=== PATIENT | female | born 1985 | race Caucasian/White ===

== ENCOUNTER 2017-03-25 21:49 | Outpatient (CLI) | payer OTHER | END 2017-03-25 21:50 | disposition critical access hospital (66) | LOC: EMS 21:49 | PROVIDERS: ATTEND Surgery | DX: R56.9 Unspecified convulsions (principal) | CPT/HCPCS: A0425; A0429 ==

== ENCOUNTER 2017-03-25 22:15 | Emergency (ER) | payer OTHER ==
[2017-03-25] MEDS ORDERED: SODIUM CHLORIDE 0.9% 1,000 ML IV STA (22:33)
--- NOTE | 2017-03-25 22:35 | ED Physician Documentation ---
PD HPI SYNCOPE - Stated complaint Stated Complaint: SZ - Chief complaint Chief Complaint: Neuro - History obtained from History obtained from: Patient, EMS - History of Present Illness Witnessed: Witnessed Timing - onset: Other (less than 30 minutes [employer]) Duration: Minutes Preceding symptoms: Vision changes, Diaphoresis, Light headed, Generalized weakness Associated symptoms: Nausea / vomiting Contributing factors: Emotional upset, Just stood up Injury occurred: None Pain level now: 0 Recently seen: Not recently seen - Additional information Additional information: patient was worried that her son might have broken his foot tonight when it got caught on a chair. Patient stood up and suddenly felt dizzy, lightheaded, and had dimmed peripheral vision. She subsequently lost consciousness and spouse witnessed GTC seizure activity. Patient rapidly regained consciousness over the next few minutes, had nausea and vomiting x 1 after waking. She only c/o nausea on ED presentation Review of Systems Constitutional: reports: Reviewed and negative Eyes: reports: Decreased vision (transient, resolved) Cardiac: reports: Reviewed and negative Respiratory: reports: Reviewed and negative GI: reports: Nausea, Vomiting. denies: Abdominal Pain Musculoskeletal: denies: Neck pain, Back pain Neurologic: reports: Syncope, Seizure. denies: Generalized weakness, Focal weakness, Numbness, Headache PD PAST MEDICAL HISTORY - Past Medical History Past Medical History: Yes Respiratory: Asthma Neuro: Fainting GI: Ulcerative colitis Psych: Anxiety - Past Surgical History Past Surgical History: Yes General: Cholecystectomy - Present Medications Home Medications: Ambulatory Orders Medication Instructions Recorded Confirmed No Known Home Medications [No 03/25/17 03/25/17 Known Home Medications] - Allergies Allergies/Adverse Reactions: Allergies Allergy/AdvReac Type Severity Reaction Status Date / Time azithromycin Allergy Hives Verified 03/25/17 22:20 [From Zithromax Z-Sonny] - Social History Does the pt smoke?: No Smoking Status: Never smoker Does the pt drink ETOH?: No Does the pt have substance abuse?: No - Immunizations Immunizations are current?: Yes PD ED PE NORMAL - Vitals Vital signs reviewed: Yes - General General: Alert and oriented X 3, No acute distress, Well developed/nourished - HEENT HEENT: PERRL, EOMI, Other (tacky/pasty mucous membranes) - Neck Neck: Supple, no meningeal sign, No bony TTP - Cardiac Cardiac: RRR, No murmur, No gallop, No rub - Respiratory Respiratory: No respiratory distress, Clear bilaterally - Abdomen Abdomen: Soft, Non tender - Derm Derm: Normal color, Warm and dry - Extremities Extremities: No edema - Neuro Neuro: Alert and oriented X 3, marketing analytics specialist 2-12 intact, No motor deficit, No sensory deficit, Normal speech Eye Opening: Spontaneous Motor: Obeys Commands Verbal: Oriented GCS Score: 15 Results - Vitals Vitals: Vital Signs - 24 hr 03/25/17 03/25/17 03/25/17 22:16 23:30 23:53 Temperature 36 C L 36.7 C Heart Rate 78 84 60 Respiratory 18 20 18 Rate Blood Pressure 117/63 106/60 110/60 O2 Saturation 100 100 100 Oxygen O2 Source Room air - Labs Labs: Laboratory Tests 03/25/17 03/25/17 22:45 22:45 WBC 7.9 RBC 4.39 Hgb 13.3 Hct 38.9 MCV 88.5 MCH 30.4 MCHC 34.3 RDW 12.5 Plt Count 280 MPV 9.5 Neut # 4.5 Lymph # 2.8 Cedar # 0.4 Eos # 0.1 Baso # 0.1 Absolute Nucleated RBC 0.00 Nucleated RBC % 0.0 Sodium 139 Potassium 3.9 Chloride 105 Carbon Dioxide 25 Anion Gap 9.0 BUN 10 Creatinine 0.7 Estimated GFR (MDRD) 97 Glucose 117 H Calcium 9.4 PD MEDICAL DECISION MAKING - ED course Complexity details: reviewed results, re-evaluated patient, considered differential, d/w patient ED course: HPI suggests vasovagal syncope with anoxic/low-flow seizure activity. No seizure activity during ED stay; remained asymptomatic during ED stay. Departure - Departure Disposition: 01 Home, Self Care Clinical Impression: Syncope, Seizure Condition: Good Instructions: ED Syncope Vasovagal, ED Seizure New Onset Unk Cause, ED Dizziness Syncope Fainting W Pre Follow-Up: Jaqui Thomson DO [Primary Care Provider] - Discharge Date/Time: 03/25/17 23:53
[2017-03-25 23:02] LABS: CALCIUM 9.4 mg/dL (8.5-10.3); CREATININE 0.7 mg/dL (0.4-1.0)
[2017-03-25 23:03] LABS: BASOPHILS # (AUTO) 0.1 10^3/uL (0.0-0.1); BASOPHILS % (AUTO) 0.8 %; EOSINOPHILS # (AUTO) 0.1 10^3/uL (0.0-0.7); EOSINOPHILS % (AUTO) 1.9 %; HGB - HEMOGLOBIN 13.3 g/dL (12.0-16.0); LYMPHOCYTES # (AUTO) 2.8 10^3/uL (1.5-3.5); LYMPHOCYTES % (AUTO) 35.3 %; MEAN CORPUSCULAR HEMOGLOBIN 30.4 pg (27.0-31.0); MEAN CORPUSCULAR HGB CONC 34.3 g/dL (32.0-36.0); MEAN CORPUSCULAR VOLUME 88.5 fL (81.0-99.0); MEAN PLATELET VOLUME 9.5 fL (7.9-10.8); MONOCYTES # (AUTO) 0.4 10^3/uL (0.0-1.0); MONOCYTES % (AUTO) 5.7 %; NEUTROPHILS # (AUTO) 4.5 10^3/uL (1.5-6.6); NEUTROPHILS % (AUTO) 56.3 %; PLT - PLATELET COUNT 280 10^3/uL (130-450); RED BLOOD COUNT 4.39 10^6/uL (4.20-5.40); RED CELL DISTRIBUTION WIDTH 12.5 % (12.0-15.0); WHITE BLOOD COUNT 7.9 x10^3/uL (4.8-10.8)
[2017-03-25 23:55] VITALS: BP 110/60
== END 2017-03-25 23:53 | disposition home or self-care (01) ==
LOC: ED 22:15
DX: R55 Syncope and collapse (principal); R56.9 Unspecified convulsions
CPT/HCPCS: 36415; 80048; 85025; 96360; 99284